=== PATIENT | female | born 1955 | race Caucasian/White ===

== ENCOUNTER 2021-02-15 16:21 | Emergency (ER) | payer OTHER, SELFPAY ==
[2021-02-15 16:37] VITALS: BP 135/61; PULSE 67; RESP 16; TEMP 36.5; O2SAT 99
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
[2021-02-15] MEDS: SODIUM CHLORIDE 0.9% 500 ML 1000 ML IV (20:45)
[2021-02-15 21:00] LABS: Add Manual Diff / Slide Review NO; Basophils Absolute Auto 100 /uL (0-100); Basophils Percent Auto 1.2 % (0-2); Eosinophils Absolute Auto 100 /uL (0-450); Eosinophils Percent Auto 1.8 % (2-4); Hematocrit 37.7 % (36-46); Hemoglobin 12.4 g/dL (12.0-16.0); Lymphocytes Absolute Auto 1400 /uL (1100-4500); Lymphocytes Percent Auto 28.8 % (25-40); Mean Corpuscular HGB Conc 32.7 % (30-36); Mean Corpuscular Hemoglobin 29.2 PG (26-34); Mean Corpuscular Volume 89.2 fL (80-100); Monocytes Absolute Auto 500 /uL (0-900); Monocytes Percent Auto 9.9 % (3-14); Neutrophils Absolute Auto 2900 /uL (1500-7000); Neutrophils Percent Auto 58.3 % (50-75); Platelet Count 295 X10^3/uL (150-400); Red Blood Cell Count 4.23 X10^6/uL (4.0-5.2); Red Cell Distribution Width 13.5 % (11.6-14.8); White Blood Cell Count 4.9 X10^3/uL (4.5-11.0)
[2021-02-15 21:12] LABS: BUN Creatinine Ratio 17.9 (6-22); Blood Urea Nitrogen 15 mg/dL (7-17); Calcium 9.7 mg/dL (8.4-10.2); Carbon Dioxide 31 mmol/L (22-32); Chloride 105 mmol/L (98-107); Estimated Glomerular Filt Rate > 60.0 mL/min (>60); Glucose 89 mg/dL (80-110); HEMOLYSIS < 15 (0-50); Sodium 141 mmol/L (137-145)
[2021-02-15] MEDS: KETOROLAC 30 MG/ML VIAL 15 MG IV (22:34)
== END 2021-02-15 22:41 | disposition home or self-care (01) ==
PROVIDERS: Emergency Provider Emergency Medicine
DX: S16.1XXA Strain of muscle, fascia and tendon at neck level, initial encounter (principal); M54.12 Radiculopathy, cervical region; R51.9 Headache, unspecified; V89.2XXA Person injured in unspecified motor-vehicle accident, traffic, initial encounter
CPT/HCPCS: 36415; 70496; 70498; 80048; 85025; 96361; 96374; 99284; J1885; Q9967

== ENCOUNTER → 2021-06-30 16:45 | Outpatient (CLI) | payer MEDICARE, OTHER, SELFPAY ==
[2021-06-30 17:37] LABS: Add Manual Diff / Slide Review NO; Basophils Absolute Auto 0 /uL (0-100); Basophils Percent Auto 1.1 % (0-2); Eosinophils Absolute Auto 100 /uL (0-450); Eosinophils Percent Auto 1.3 % (2-4); Hematocrit 40.1 % (36-46); Hemoglobin 13.4 g/dL (12.0-16.0); Lymphocytes Absolute Auto 1100 /uL (1100-4500); Lymphocytes Percent Auto 24.5 % (25-40); Mean Corpuscular HGB Conc 33.3 % (30-36); Mean Corpuscular Hemoglobin 29.4 PG (26-34); Mean Corpuscular Volume 88.2 fL (80-100); Monocytes Absolute Auto 400 /uL (0-900); Neutrophils Absolute Auto 2800 /uL (1500-7000); Neutrophils Percent Auto 64.1 % (50-75); Platelet Count 268 X10^3/uL (150-400); Red Blood Cell Count 4.55 X10^6/uL (4.0-5.2); Red Cell Distribution Width 13.7 % (11.6-14.8); White Blood Cell Count 4.4 X10^3/uL (4.5-11.0)
[2021-06-30 18:01] LABS: Appearance Urine UA CLEAR; Bilirubin Urine UA NEGATIVE (NEGATIVE); Color Urine UA YELLOW; Glucose Urine UA NEGATIVE (Negative); Ketones Urine UA 1+ (NEGATIVE); Leukocyte Esterase Urine UA NEGATIVE (NEGATIVE); Nitrite Urine UA NEGATIVE (Negative); Occult Blood Urine UA NEGATIVE (Negative); Protein Urine UA TRACE (Negative); Specific Gravity Urine UA 1.015 (1.000-1.035); Urobilinogen Urine UA 0.2 E.U./dL (0.2)
[2021-06-30 18:04] LABS: pH Urine UA 6.5 (4.5-8.0)
[2021-06-30 18:08] LABS: Bacteria Urine None Seen; Culture Indicated Urine Cult Not Indicated; Hyaline Casts Urine 0-1/LPF; Mucus Urine 1+ (Negative); RBC Urine None Seen (0-5/HPF); WBC Urine 0-1/HPF (0-5/HPF)
[2021-06-30 18:28] LABS: BUN Creatinine Ratio 18.2 (6-22); Blood Urea Nitrogen 18 mg/dL (7-17); Calcium 9.6 mg/dL (8.4-10.2); Carbon Dioxide 31 mmol/L (22-32); Chloride 99 mmol/L (98-107); Estimated Glomerular Filt Rate > 60 mL/min (>60); Glucose 84 mg/dL (80-110); HEMOLYSIS < 15 (0-50); Potassium 4.3 mmol/L (3.4-5.1); Sodium 138 mmol/L (137-145)
[2021-06-30 18:29] LABS: Hemoglobin A1C% w Est Avg Glu 5.4 % (4.0-6.0)
== END ==
PROVIDERS: PCP Family Medicine; Referring Provider Orthopaedic Surgery; Visit Provider Orthopaedic Surgery
DX: Z01.812 Encounter for preprocedural laboratory examination; R73.9 Hyperglycemia, unspecified; N39.0 Urinary tract infection, site not specified
CPT/HCPCS: 36415; 80048; 81001; 83036; 85025; 93005

== ENCOUNTER → 2021-07-20 13:09 | Outpatient (CLI) | payer MEDICARE, OTHER, SELFPAY ==
--- NOTE | 2021-07-20 | DI.MRI.S_ITS ---
PROCEDURE: MR KNEE RT WO CON INDICATIONS: Unilateral primary osteoarthritis, right knee TECHNIQUE: Noncontrast sagittal PD fast spin echo and T2 fast spin echo with fat saturation, sagittal 3-D FLASH with fat saturation; coronal T1 spin echo and PD fast spin echo with fat saturation, and axial PD fast spin echo with fat saturation through the knee. COMPARISON: [facility], CR, XR KNEE ARTHRITIC SERIES BI, 06/30/2021, 15:30. FINDINGS: Image quality: Excellent. Medial extrusion of the medial meniscus is present. Linear oblique high signal intensity traverses the middle and peripheral thirds of the medial meniscal body and posterior horn, demonstrating inferior articular surface extension, indicating oblique tearing. Medial extrusion of the medial meniscus is present. Linear oblique high T2 signal intensity traverses the inner, middle, and peripheral thirds of the anterior horn, body, and posterior horn lateral meniscus, demonstrating inferior articular surface extension, indicating oblique tearing. Cruciate ligaments: The anterior and posterior cruciate ligaments appear intact. Medial structures: The medial collateral ligament appears intact. Visualized portions of the pes anserinus tendons appear normal. Small amount of medial bursal fluid. Lateral structures: The lateral collateral ligament demonstrates moderate T2 signal elevation at the femoral origin. The long and short heads of the biceps femoris tendon appear intact. The popliteus tendon appears normal. Iliotibial band appears normal. Anterior structures: The quadriceps and patellar tendons appear intact. Lateral patellar subluxation is present. No femoral trochlear dysplasia or ventral trochlear prominence. No edema in the infrapatellar fat pad. Bones and cartilage: No bone marrow contusions or fractures. Mild subchondral cyst formation and degenerative marrow edema within the lateral patellar facet. There is severe tricompartmental periarticular osteophyte formation. Moderate subchondral degenerative marrow edema within the weight-bearing aspects of the medial tibial plateau, as well as the lateral femoral condyle and lateral tibial plateau. Subchondral cysts within the anterior and posterior weight-bearing aspects of the medial tibial plateau. Joint space: There is a moderate knee joint effusion and a small Seymour's cyst. Normal appearing synovial plicae are incidentally noted. IMPRESSION: 1. Tricompartmental osteoarthritis with associated articular cartilage loss. 2. Medial and lateral meniscal tearing. 3. Knee joint effusion and Seymour's cyst. 4. Partial thickness lateral collateral ligament tear. 5. Knee joint effusion and Seymour's cyst. 6. Medial bursitis. Dictated by: Nate Jackson M.D. on 07/20/2021 at 14:17 Approved by: Nate Jackson M.D. on 07/20/2021 at 14:19
== END ==
PROVIDERS: PCP Family Medicine; Referring Provider Orthopaedic Surgery; Visit Provider Orthopaedic Surgery
DX: M17.11 Unilateral primary osteoarthritis, right knee (principal); S83.241A Other tear of medial meniscus, current injury, right knee, initial encounter; S83.281A Other tear of lateral meniscus, current injury, right knee, initial encounter; S83.421A Sprain of lateral collateral ligament of right knee, initial encounter; M25.461 Effusion, right knee; M71.21 Synovial cyst of popliteal space [Baker], right knee
CPT/HCPCS: 73721

== ENCOUNTER → 2022-07-19 13:33 | Outpatient (CLI) | payer OTHER, SELFPAY ==
--- NOTE | 2022-07-19 | DI.ECHO.S_ITS ---
[place] [facility]---------+ [facility] +---------+ : : [address] : : : : [id number] : : : : Phone: [phone] Echocardiogram Report + + :Name: HERMINIO BOB Study Date: 07/19/2022 Height: 68 in : :[facility] ReadingLocation: Weight: 186 lb : : Gender: Female BSA: 2.0 m2 : :: 1955 Age: 66 yrs BP: 115/63 mmHg: :Reason For Study: ATRIAL FIBRILLATION : :Ordering Physician: ESTEFANÍA, : :AGUSTÍN Performed By: Leonela Victoria : :Referring: AGUSTÍN JOSÉ : + + Interpretation Summary Sinus bradycardia with HR 45-53 bpm. Normal LV size and wall thickness; normal wall motion and LV systolic function. EF is 50-55%. Mild LA enlargement; otherwise normal chamber sizes. No significant valvular abnormalities. No prior study available for comparison. Procedure: A two-dimensional transthoracic echocardiogram with color flow and Doppler was performed. The study quality was technically adequate. There is no prior echocardiogram noted for this patient. The patient was in sinus bradycardia with heart rates between 45-53 bpm during the exam. Left Ventricle: The left ventricle is normal in size and wall thickness. The ejection fraction is estimated to be 50-55%. Right Ventricle: The right ventricle is borderline dilated. The right ventricular systolic function is normal. Atria: The left atrium is mildly dilated. Right atrial size is normal. There is no Doppler evidence for an interatrial shunt. Mitral Valve: The mitral valve is normal in structure and function. There is mild mitral regurgitation. Aortic Valve: The aortic valve is trileaflet. The aortic valve opens well. There is no aortic valve stenosis. No aortic regurgitation is present. Tricuspid Valve: The tricuspid valve is normal in structure and function. There is mild tricuspid regurgitation. The right ventricular systolic pressure is estimated to be at least 21 mmHg based on an estimated right atrial pressure of 3 mm Hg. Pulmonic Valve: The pulmonic valve leaflets are thin and pliable; valve motion is normal. There is no pulmonic valvular regurgitation. Great Vessels: The aortic root is normal size. The dimensions of the ascending aorta are normal. The IVC is of normal diameter and collapses greater than 50% with a sniff. This suggests a low right atrial pressure of 3 mm Hg. Pericardium/ Pleura There is no pericardial effusion. There is no pleural effusion. MMode/2D Measurements & Calculations LVIDd: 4.7 cm LVOT diam: 2.3 cm LVIDs: 3.1 cm Ao root diam: 2.9 cm FS: 32.8 % asc Aorta Diam: 3.1 cm IVSd: 0.95 cm Ao Arch Diam (Prox Trans): 3.2 cm LVPWd: 0.73 cm LV ortiz. diameter/BSA (cm/m^2): 2.4 LV sys. diameter/BSA (cm/m^2): 1.6 LA A2 area: 26.5 cm2 RA long axis: 5.0 cm LA A4 area: 20.1 cm2 RA area: 18.5 cm2 LA length (vol): 5.8 cm RA vol: 58.7 ml LA vol: 78.3 ml RA : 29.6 ml/m2 LA vol index: 39.5 ml/m2 IVC diam: 1.9 cm RVD1 (basal): 4.2 cm RVD2 (mid): 3.4 cm TAPSE: 2.3 cm Doppler Measurements & Calculations Ao V2 max: 118.1 cm/sec LVOT Max Scotty: 112.6 cm/sec Ao V2 mean: 91.4 cm/sec LV V1 max P.1 mmHg Ao max P.6 mmHg LV V1 VTI: 27.5 cm Ao mean P.6 mmHg ARLYN(I,D): 3.6 cm2 Ao V2 VTI: 30.6 cm ARLYN(V,D): 3.8 cm2 sev ratio: 0.90 ARLYN indexed to BSA (cm^2/m^2): 1.8 MV E max scotty: 63.1 cm/sec TR max scotty: 214.6 cm/sec MV A max scotty: 34.5 cm/sec TR max P.4 mmHg MV E/A: 1.8 PA V2 max: 79.5 cm/sec Med Peak E' Scotty: 6.9 cm/sec PA V2 mean: 59.3 cm/sec E/E' med: 9.1 PA mean P.6 mmHg Lat Peak E' Scotty: 7.0 cm/sec PA pr(Accel): 15.6 mmHg E/E' lat: 9.0 E/e' average: 9.1 MV dec time: 0.31 sec SV(LVOT): 109.5 ml Electronically signed by: Kayla Barcenas M.D. on Reading Physician:07/20/2022 01:11 AM
== END ==
PROVIDERS: PCP Family Medicine; Referring Provider Internal Medicine Cardiovascular Disease; Visit Provider Internal Medicine Cardiovascular Disease
DX: I48.0 Paroxysmal atrial fibrillation (principal); I08.1 Rheumatic disorders of both mitral and tricuspid valves
CPT/HCPCS: 93306